=== PATIENT | male | born 1980 | race Caucasian/White ===

== ENCOUNTER 2020-03-12 17:51 | Observation (INO) ==
[2020-03-12] MEDS ORDERED: Sulfamethoxazole/Trimeth DS 1 EACH TABLET PO ONE (18:33)
[2020-03-12] MEDS ORDERED: Lidocaine/EPI 1:200k 1% PF 10 ML VIAL INFILT STA (18:53)
[2020-03-12] MEDS ORDERED: Ibuprofen 600 MG TABLET PO ONE (20:05)
[2020-03-12 20:30] LABS: Hematocrit 38.3 % (37.5-50.1); Hemoglobin 12.8 g/dL (12.9-16.9); Mean Corpuscular HGB Conc 33.4 g/dL (31.6-35.5); Mean Corpuscular Hemoglobin 27.2 pg (28.0-33.3); Mean Corpuscular Volume 81.3 fL (83.0-100.0); Platelet Count 195 K/mcL (140-400); Red Blood Count 4.71 M/mcL (4.19-5.50); Red Cell Distribution Width 12.7 % (11.5-14.5); White Blood Count 10.9 K/mcL (4.3-11.1)
[2020-03-12 20:51] LABS: BUN/Creatinine Ratio 17 (6-26); Blood Urea Nitrogen 14 mg/dL (6-20); Calcium 9.2 mg/dL (8.6-10.3); Carbon Dioxide 28 mEq/L (23-29); Chloride 101 mEq/L (98-107); Glucose 84 mg/dL (70-105); Osmolality,Calculated 280 (280-300); Sodium 135 mEq/L (136-145); eGFR For African Americans > 60 (> 60); eGFR For Non-African Americans > 60 (> 60)
[2020-03-13] MEDS ORDERED: Ondansetron ODT 4 MG TAB.RAPDIS SL PRN (00:27)
[2020-03-13] MEDS ORDERED: Naloxone 0.4 MG/ML INJ IVP PRN (00:27)
[2020-03-13] MEDS ORDERED: 0.9 % Sodium Chloride 1,000 ML IVC SCH (00:30)
[2020-03-13] MEDS: Nicotine 14 MG PATCH.TD24 TD SCH ×2 (01:13→12:48)
[2020-03-13 05:01] LABS: Basophils # 0.1 K/mcL (0.0-0.2); Basophils % 0.6 %; Eosinophils # 0.4 K/mcL (0.0-0.6); Hematocrit 35.9 % (37.5-50.1); Hemoglobin 11.8 g/dL (12.9-16.9); Immature Granulocytes % 0.4 % (0-4); Lymphocytes # 2.2 K/mcL (0.6-4.6); Lymphocytes % 22.1 %; Mean Corpuscular HGB Conc 32.9 g/dL (31.6-35.5); Mean Corpuscular Volume 82.2 fL (83.0-100.0); Mean Platelet Volume 10.5 fL (9.4-12.4); Monocytes # 0.8 K/mcL (0.0-1.3); Neutrophils # 6.4 K/mcL (1.6-8.9); Platelet Count 188 K/mcL (140-400); Red Blood Count 4.37 M/mcL (4.19-5.50); Red Cell Distribution Width 12.8 % (11.5-14.5); Segmented Neutrophils % 64.9 %; White Blood Count 9.9 K/mcL (4.3-11.1)
[2020-03-13 05:11] LABS: INR 1.1; Prothrombin Time 12.1 Seconds (9.4-12.1)
[2020-03-13 05:23] LABS: Alanine Aminotransferase 18 Units/L (7-52); Albumin 3.5 g/dL (3.5-5.7); Albumin/Globulin Ratio 1.3 (1.1-2.2); Alkaline Phosphatase 59 Units/L (34-104); Aspartate Amino Transferase 18 Units/L (13-39); BUN/Creatinine Ratio 15 (6-26); Bilirubin,Total 0.2 mg/dL (0.3-1.0); Blood Urea Nitrogen 14 mg/dL (6-20); Calcium 8.9 mg/dL (8.6-10.3); Carbon Dioxide 28 mEq/L (23-29); Chloride 104 mEq/L (98-107); Globulin 2.8 g/dL (2.4-3.5); Glucose 102 mg/dL (70-105); Magnesium 2.2 mg/dL (1.6-2.6); Osmolality,Calculated 285 (280-300); Phosphorous 3.6 mg/dL (2.7-4.5); Sodium 137 mEq/L (136-145); Total Protein 6.3 g/dL (6.4-8.9); Troponin I < 0.03 ng/mL (< 0.04); eGFR For African Americans > 60 (> 60); eGFR For Non-African Americans > 60 (> 60)
[2020-03-13 07:08] LABS: % Iron Saturation 7 % (20-55); Iron 21 mcg/dL (65-175); Transferrin 223 mg/dL (203-362)
[2020-03-13 07:22] LABS: Ferritin 47 ng/mL (20-250)
[2020-03-13 07:28] LABS: Folate 9.5 ng/mL (3.0-16.0)
[2020-03-13] MEDS ORDERED: Acetaminophen 325 MG TABLET PO PRN (08:49)
[2020-03-13] MEDS: *HR* Buprenorphine HCl 8 MG TAB.SUBL SL SCH ×2 (10:21→20:10)
[2020-03-13] MEDS: Ketorolac 15 MG/ML VIAL IVP PRN (15:23)
[2020-03-13] MEDS: *HR* Heparin 5,000 UNIT/ML VIAL SQ SCH (18:19)
[2020-03-14] MEDS: Ketorolac 15 MG/ML VIAL IVP PRN ×2 (01:57→08:52)
[2020-03-14] MEDS: *HR* Heparin 5,000 UNIT/ML VIAL SQ SCH (06:10)
[2020-03-14] MEDS: *HR* Buprenorphine HCl 8 MG TAB.SUBL SL SCH (07:32)
[2020-03-14] MEDS: Nicotine 14 MG PATCH.TD24 TD SCH (07:32)
[2020-03-14 11:06] VITALS: BP 100/62
[2020-03-14] MEDS ORDERED: Aminoglycoside Consult 1 EACH MC ONE (12:14)
== END 2020-03-14 12:15 | disposition home or self-care (01) ==
LOC: EMEROOARM 17:51 → 3ANU 17:51 → SUATTDRO 21:22 → 3ANU 22:23
PROVIDERS: ADMIT Internal Medicine; ATTEND Internal Medicine